=== PATIENT | female | born 1985 | race Caucasian/White ===

== ENCOUNTER 2024-06-09 19:28 | Observation (INO) ==
--- NOTE | 2024-06-09 19:35 | ED Physician Documentation ---
History of Present Illness Stated complaint Stated Complaint: CONFUSION Chief complaint Chief Complaint: Neuro Additonal information Additional information: Recent inpatient stay at [facility]. Paramedics tell me it was for alcohol. Patient says it was because she was crazy. Got out about 3 days ago. Since 1030 this morning she has been confused and slurring her speech. Perhaps took extra medications? She has no specific complaints but is a difficult historian due to her delirium. Further hx from by phone ([phone]). He thinks she took her PM meds this monring: In the morning she is post to take aripiprazole and propranolol. At bedtime to take prazosin 1 mg, divalproex 500 mg, and doxepin 100 mg. Wylie Coma Scale Assess Eye opening: Spontaneous Verbal response: Confused Motor response: Obeys Commands Total score: 14 Meds/Allgy Allergies Allergies Allergy/AdvReac Type Severity Reaction Status Date / Time No Known Drug Allergies Allergy Verified 06/09/24 19:35 [facility] Social History Social History Relationship: Do you feel safe in your home environment?: Yes Suffered physical, verbal, emotional, or financial abuse?: No Exam Constitutional She is alert and oriented to person. She is slow slurred speech and trails off. She can come up with the year correctly but not the month or the date. When I ask her what type of building this is she says "brick and mortar," but with further prompting cannot say hospital. Eyes EOMs intact bilaterally (Somewhat limited by cooperation) Midpoint sluggishly reactive pupils, symmetric Respiratory breath sounds equal bilaterally, normal respiratory effort and clear to auscultation bilaterally Cardiovascular normal heart rate noted, regular rhythm noted and no murmur Gastrointestinal abdomen soft to palpation and nontender to palpation Neurology GCS calculation - Eye opening: Spontaneous Verbal response: Confused Motor response: Obeys Commands Padmini Coma Scale total score: 14 Results Vitals Vitals: Vital Signs - 24 hr 06/09/24 19:32 06/09/24 19:35 Temperature 36.6 C Temperature Source Tympanic Pulse Rate 89 Respiratory Rate 18 Blood Pressure 134/71 H O2 Saturation 100 O2 Source Room air Pain Intensity 7 7 Oxygen O2 Source Room air EKG (time done) 1944: EKG releavant findings:: EKG personally interpreted by author of this note. Relevant findings are: Rate: Rate (enter#) (73) Rhythm: NSR and LAE [place]: Normal Intervals: Normal [place] QRS: QRS normal Ischemia: Normal ST segments Labs Labs: Laboratory Tests 06/09/24 06/09/24 06/09/24 19:41 19:41 19:57 WBC 4.9 RBC 3.98 L Hgb 7.9 L Hct 28.6 L MCV 71.9 L MCH 19.8 L MCHC 27.6 L RDW 17.6 H Plt Count 343 MPV 9.0 Neut # (Auto) 2.3 Lymph # (Auto) 1.5 [place] # (Auto) 0.5 Eos # (Auto) 0.6 Baso # (Auto) 0.0 Absolute Nucleated RBC 0.00 Nucleated RBC % 0.0 Manual Slide Review Indicated Platelet Estimate NORMAL (130-450,000) Platelet Morphology NORMAL APPEARANCE RBC Morph Micro Appear 2+ ANISOCYTOSIS 2+ HYPOCHROMASIA Sodium 136 Potassium 4.2 Chloride 103 Carbon Dioxide 27 Anion Gap 6.0 BUN 18 Creatinine 0.6 Estimated GFR (MDRD) 113 Glucose 88 Calcium 9.0 Magnesium 1.9 Total Bilirubin 0.3 AST 13 ALT 10 Alkaline Phosphatase 75 Total Creatine Kinase 44 Total Protein 6.6 Albumin 4.2 Globulin 2.4 Albumin/Globulin Ratio 1.8 Lipase < 10 L TSH 0.95 Urine Color YELLOW Urine Clarity HAZY Urine pH 6.5 Ur Specific [place] 1.010 Urine Protein NEGATIVE Urine Glucose (UA) NEGATIVE Urine Ketones NEGATIVE Urine Occult Blood NEGATIVE Urine Nitrite NEGATIVE Urine Bilirubin NEGATIVE Urine Urobilinogen 1 (NORMAL) Ur Leukocyte Esterase SMALL H Urine RBC 0-5 Urine WBC 4-5 Ur Squamous Epith Cells FEW Squamous Urine Bacteria Few Ur Microscopic Review INDICATED Urine Culture Comments INDICATED Urine HCG, Qual NEGATIVE Last Dose Date Not Reportable Last Dose Time Not Reportable Salicylates < 1.5 Urine Opiates Screen NEGATIVE Ur Buprenorphine Scrn NEGATIVE Ur Oxycodone Screen NEGATIVE Urine Methadone Screen NEGATIVE Acetaminophen 0.1 Ur Barbiturates Screen NEGATIVE Valproic Acid 30.9 Ur Tricyclics Screen POSITIVE H Ur Phencyclidine Scrn NEGATIVE Ur Amphetamine Screen NEGATIVE U Methamphetamines Scrn NEGATIVE U Benzodiazepines Scrn NEGATIVE Urine Cocaine Screen NEGATIVE U Cannabinoids Screen NEGATIVE Ur Drug Screen Comment CUTOFF CONC BELOW: Ethyl Alcohol < 10.0 PD Medical Decision Making ED course ED course: She presents with a delirium likely related to inadvertent drug overdose. My suspicion is the bulk of her symptomatology would be due to the very large dose of doxepin that she is supposed to take at night. I discussed the case by phone with her who knows the anemia is chronic and the patient seems to recognize this as well. He does not feel like she has any underlying mental health issues and was frustrated that she was sent home on so many psych medications. The main reason she went to the psychiatric hospital was for alcohol detoxification. She is persistently delirious here so call to the hospitalist for admission at 8:32 PM. Med list from [facility] dated 06/07/24 Abilify 10 mg once a day Hydroxyzine 50 mg every 4 hours Propranolol 10 mg 3 times a day Prazosin 1 mg at bedtime Divalproex extended release 500 mg at bedtime Doxepin 100 mg at bedtime Spoke with telehealth hospitalist Dr. Santos at approximately 9 PM who refuses to admit based on thinking she will clear up after a couple of hours. I did stress with him it's already been 11 hours. Reviewed 1/2 life of doxepin at 15 hours. He felt poison control input was necessary. Spoke with poison control (Karen), agrees likely d/t doxepin side effect. Supportive care only with decrease of meds. Recommends daily depakote level. EKG q6hs. Keep Mag >4 and Mag >2. I did order magnesium sulfate IV For the magnesium level of 1.9 per the above instruction. Spoke with Dr. Santos again at 9:15 PM who will admit. Discharge Plan Discharge Patient Disposition: ED Place in Observation Condition: Stable Clinical Impression: Altered mental status Print Language: Setswana Stand Alone Forms: PCP List
[2024-06-09 19:45] LABS: BASOPHILS % (AUTO) 0.6 %; EOSINOPHILS # (AUTO) 0.6 10^3/uL (0.0-0.7); EOSINOPHILS % (AUTO) 11.8 %; HCT - HEMATOCRIT 28.6 % (37.0-47.0); HGB - HEMOGLOBIN 7.9 g/dL (12.0-16.0); LYMPHOCYTES # (AUTO) 1.5 10^3/uL (1.5-3.5); LYMPHOCYTES % (AUTO) 29.6 %; MEAN CORPUSCULAR HEMOGLOBIN 19.8 pg (27.0-31.0); MEAN CORPUSCULAR HGB CONC 27.6 g/dL (32.0-36.0); MEAN CORPUSCULAR VOLUME 71.9 fL (81.0-99.0); MONOCYTES # (AUTO) 0.5 10^3/uL (0.0-1.0); NEUTROPHILS # (AUTO) 2.3 10^3/uL (1.5-6.6); NEUTROPHILS % (AUTO) 47.8 %; PLT - PLATELET COUNT 343 10^3/uL (130-450); RED BLOOD COUNT 3.98 10^6/uL (4.20-5.40); RED CELL DISTRIBUTION WIDTH 17.6 % (12.0-15.0); WHITE BLOOD COUNT 4.9 x10^3/uL (4.8-10.8)
[2024-06-09 19:51] LABS: SLIDE REVIEW? Indicated
[2024-06-09 20:04] LABS: BILIRUBIN,URINE NEGATIVE (NEGATIVE); GLUCOSE, URINE (UA) NEGATIVE (NEGATIVE); KETONES,URINE (UA) NEGATIVE (NEGATIVE); LEUKOCYTE ESTERASE, URINE SMALL (NEGATIVE); NITRITE,URINE NEGATIVE (NEGATIVE); OCCULT BLOOD,URINE NEGATIVE (NEGATIVE); PH,URINE 6.5 PH (5.0-7.5); PROTEIN,URINE NEGATIVE (NEGATIVE); UROBILINOGEN,URINE 1 (NORMAL) E.U./dL (NORMAL)
[2024-06-09 20:05] LABS: ACETAMINOPHEN 0.1 ug/mL; ALBUMIN 4.2 g/dL (3.2-5.5); ALBUMIN/GLOBULIN RATIO 1.8 (1.0-2.2); ALKALINE PHOSPHATASE 75 IU/L (42-121); ALT ALANINE AMINOTRANSFERASE 10 IU/L (10-60); AST ASPARTATE AMINOTRANSFERASE 13 IU/L (10-42); BILIRUBIN,TOTAL 0.3 mg/dL (0.2-1.0); BUN - BLOOD UREA NITROGEN 18 mg/dL (6-20); CARBON DIOXIDE - CO2 27 mmol/L (21-32); CHLORIDE 103 mmol/L (101-111); CK- CREATINE KINASE 44 IU/L (30-223); CREATININE 0.6 mg/dL (0.6-1.3); ETOH - ETHANOL < 10.0 mg/dL; GFR - MDRD 113 (>89); GLUCOSE 88 mg/dL (74-104); MAGNESIUM 1.9 mg/dL (1.7-2.3); POTASSIUM 4.2 mmol/L (3.5-4.5); SODIUM 136 mmol/L (135-145); TOTAL PROTEIN 6.6 g/dL (6.4-8.9); VALPROIC ACID (DEPAKOTE) 30.9 ug/mL
[2024-06-09 20:07] LABS: CLARITY,URINE HAZY (CLEAR); HCG UR QUAL NEGATIVE
[2024-06-09 20:13] LABS: THYROID STIMULATING HORMONE 0.95 uIU/mL (0.34-5.60)
[2024-06-09 20:15] LABS: LIPASE < 10 U/L (11-82); SALICYLATE < 1.5 mg/dL
[2024-06-09 20:16] LABS: AMPHETAMINE SCREEN,URINE NEGATIVE (NEGATIVE); COCAINE SCREEN URINE NEGATIVE (NEGATIVE); METHAMPHETAMINES SCREEN, URINE NEGATIVE (NEGATIVE); OPIATE SCREEN, URINE NEGATIVE (NEGATIVE); THC CANNABINOID SCREEN, URINE NEGATIVE (NEGATIVE)
[2024-06-09 20:17] LABS: BARBITURATE SCREEN,UR NEGATIVE (NEGATIVE); BENZODIAZEPINES SCREEN, URINE NEGATIVE (NEGATIVE); BUPRENORPHINE SCREEN, URINE NEGATIVE (NEGATIVE); METHADONE SCREEN, URINE NEGATIVE (NEGATIVE); OXYCODONE SCREEN, URINE NEGATIVE (NEGATIVE); TRICYCLIC ANTIDEPRESSANT,URINE POSITIVE (NEGATIVE)
[2024-06-09 20:19] LABS: BACTERIA,URINE Few /HPF (None Seen); RBC,URINE 0-5 /HPF (0-5); SQUAMOUS EPITHELIAL CELL,UR FEW Squamous (<= Few)
[2024-06-09 20:24] LABS: PLATELET ESTIMATE, MANUAL NORMAL (130-450,000) (NORMAL); PLATELET MORPHOLOGY NORMAL APPEARANCE (NORMAL)
[2024-06-09] MEDS ORDERED: MAGNESIUM SULFATE 2 GRAM 2 GM/50 ML BAG IV ONE (21:19)
[2024-06-09] MEDS: MAGNESIUM SULFATE 2 GRAM 2 GM/50 ML BAG IV ONE (21:20)
[2024-06-09] MEDS ORDERED: SODIUM CHLORIDE FLUSH 0.9% 10 ML SYRINGE IVP PRN (21:22)
[2024-06-09] MEDS ORDERED: ACETAMINOPHEN 325 MG TABLET PO PRN (21:22)
[2024-06-09] MEDS ORDERED: ONDANSETRON 4 MG/2 ML VIAL IVP PRN (21:22)
--- NOTE | 2024-06-09 21:47 | HISTORY & PHYSICAL EXAMINATION ---
Chief Complaint Chief Complaint Chief Complaint: Altered mental status History of Present Illness Admitted From Admitted From:: Rehab Facility History Obtained From Records Reviewed: Yes History obtained from: Yes Exam Limitations: telemedicine History of Present Illness HPI Comment/Other: 38 yr young woman presents with altered mental status," Recent inpatient stay at [facility]. Paramedics tell ER MD it was for alcohol. Patient says it was because she was crazy. Got out about 3 days ago. Since 1030 this morning she has been confused and slurring her speech. Perhaps took extra medications? She has no specific complaints but is a difficult historian due to her delirium. Further hx from by phone ([phone]). He thinks she took her PM meds this monring: In the morning she is post to take aripiprazole and propranolol. At bedtime to take prazosin 1 mg, divalproex 500 mg, and doxepin 100 mg." I was requested by Dr Stanley to admit patient for observation for Doxepin overdose, I requested him to talk with poison control and also recommended imaging test, he felt patient does not have any signs or symptoms of CVA, he spoke with poison control who recommended keeping electrolytes monitored, dialy depakote levels and EKG Q 6 hr. Patient seen and examined via telemedicine, was able to appropriately communicated, i informed her that I am based out of [place], she gave me a verbal consent to continue the encoutner. 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, no pain, but is frustrated not knowing what is wrong with her, is able to move all 4 extremitites, appropriate eye contct, in no acute pain or distress Review of Systems 14 system review done and as per HPI Allergic/Immunologic Reports: Seasonal allergies PFSH Social History Social History Smoking Status: Current every day smoker Relationship: Do you feel safe in your home environment?: Yes Suffered physical, verbal, emotional, or financial abuse?: No POLST Patient has POLST: No POLST Status: Full Code Meds/Allgy Allergies Allergies Allergy/AdvReac Type Severity Reaction Status Date / Time No Known Drug Allergies Allergy Verified 06/09/24 19:35 Prior Level of Functionality: Independent with ADL Exam Constitutional normal general appearance and no apparent distress HENMT normocephalic, hearing grossly normal bilaterally and nasal mucous membranes normal Eyes PERRL and conjunctivae normal Neck/C-Spine visual inspection normal and trachea midline Chest inspection of chest normal Respiratory breath sounds equal bilaterally and normal respiratory effort Cardiovascular normal heart rate noted and regular rhythm noted Gastrointestinal abdomen normal to inspection Genitourinary no CVA tenderness Back/Pelvis no thoracic spine tenderness and no lumbar spine tenderness Extremities normal to inspection and full ROM Neurology no movement abnormality noted, no focal motor deficit noted and no sensory deficits noted Psychiatry Thought process is slow Sepsis Event Note (H) Evaluation Current Stage of Sepsis: Ruled out Conclusion/Plan Problem List (1) Altered mental status: Plan: 38 yr young patient admitted with likely 1. Drug overdose 2.Hx of tobacco use disorder 3. Hx of ETOH use 4. Likely Doxepin overdose 5. Anemia - Chronic as per 's discussion with ER MD Plan Admit to observation Poison control has been notified by ER MD and recommend EKG q 6 hrs Keep electrolytes optimized monitor Depakote level of daily basis no other intervention at this time We discussed the need for any other interventions to which posion control and ER MD felt not needed a this time Patient has been informed that she will be seen by my colleague in am Continue DVT Prophylaxis Full code Lab Results Lab results reviewed: Yes 06/09/24 19:41 06/09/24 19:41
[2024-06-09] MEDS: HYDROcod/ACETAM 5/325 MG TABLET PO PRN (22:19)
[2024-06-10] MEDS: SODIUM CHLORIDE FLUSH 0.9% 10 ML SYRINGE IVP SCH (00:14)
[2024-06-10 05:32] LABS: BASOPHILS % (AUTO) 0.5 %; EOSINOPHILS # (AUTO) 0.4 10^3/uL (0.0-0.7); EOSINOPHILS % (AUTO) 10.9 %; HCT - HEMATOCRIT 27.4 % (37.0-47.0); HGB - HEMOGLOBIN 7.9 g/dL (12.0-16.0); LYMPHOCYTES # (AUTO) 1.3 10^3/uL (1.5-3.5); LYMPHOCYTES % (AUTO) 33.5 %; MEAN CORPUSCULAR HEMOGLOBIN 20.3 pg (27.0-31.0); MEAN CORPUSCULAR HGB CONC 28.8 g/dL (32.0-36.0); MEAN CORPUSCULAR VOLUME 70.4 fL (81.0-99.0); MEAN PLATELET VOLUME 9.1 fL (7.9-10.8); MONOCYTES # (AUTO) 0.4 10^3/uL (0.0-1.0); MONOCYTES % (AUTO) 11.2 %; NEUTROPHILS # (AUTO) 1.7 10^3/uL (1.5-6.6); NEUTROPHILS % (AUTO) 43.6 %; PLT - PLATELET COUNT 321 10^3/uL (130-450); RED BLOOD COUNT 3.89 10^6/uL (4.20-5.40); RED CELL DISTRIBUTION WIDTH 17.8 % (12.0-15.0); WHITE BLOOD COUNT 3.9 x10^3/uL (4.8-10.8)
[2024-06-10 05:36] LABS: SLIDE REVIEW? Indicated
[2024-06-10 05:49] LABS: ALBUMIN/GLOBULIN RATIO 1.7 (1.0-2.2); BILIRUBIN,TOTAL 0.3 mg/dL (0.2-1.0); CALCIUM 8.7 mg/dL (8.5-10.3); CREATININE 0.7 mg/dL (0.6-1.3); MAGNESIUM 2.1 mg/dL (1.7-2.3); PHOSPHORUS 5.2 mg/dL (2.5-5.0); POTASSIUM 4.1 mmol/L (3.5-4.5); TOTAL PROTEIN 6.3 g/dL (6.4-8.9)
[2024-06-10 06:02] LABS: PLATELET ESTIMATE, MANUAL NORMAL (130-450,000) (NORMAL); PLATELET MORPHOLOGY NORMAL APPEARANCE (NORMAL); RBC MORPHOLOGY (MULTIPLE) 2+ HYPOCHROMASIA (NORMAL); WBC MORPHOLOGY (MULTIPLE) NORMAL APPEARANCE (NORMAL)
[2024-06-10] MEDS: NICOTINE 7 MG PATCH TOP SCH (09:45)
[2024-06-10] MEDS: ARIPiprazole 5 MG TABLET PO STA (09:46)
[2024-06-10] MEDS ORDERED: ARIPiprazole 5 MG TABLET PO SCH (10:00)
--- NOTE | 2024-06-10 11:17 | PROVIDER PROGRESS NOTE ---
Subjective Subjective Subjective: Patient appears extremely agitated, anxious, and jittery. She does not think she needed to be admitted in the first place, and believes that it was a misunderstanding. She thinks that she was taking her medications as prescribed. She states that she has chronic pain that she takes Percocet for, and is just having that pain in her hips. She does not have any chest pain, any palpitations, does not feel like her heart is racing. She is very eager to go home. She states that her doxepin was prescribed 4 times a day, is very adamant about this. Tracy, the pharmacist, took the bottle to her bedside, and she was still not convinced. Her psych history was discussedshe thinks states that she has anxiety and depression. She does not recall any history of IV drug use or alcohol misuse. Her , Luke Cordova was spoken with this morning as well. His phone number is [phone]. He stated that he she was at [facility] in [place], [place]. She was discharged, and did well on Monday. However yesterday, she started having slurred speech, she was not able to talk in full sentences. She was extremely fatigued and tired. [facility] was attempted to be called, I did leave a message, but have not gotten a call back yet. Upon further review with the pharmacist, she also has benztropine, as well as Seroquel listed in her med list, which she may have been taking. Current Medications Current Medications Current Medications: Current Medications Generic Name Dose Route Start Last Admin Trade Name Karolyn PRN Reason Stop Dose Admin Acetaminophen 650 mg 06/09/24 21:22 Acetaminophen 325 Mg Tablet PO Q4HR PRN Pain 1 to 4, or Fever Hydrocodone Bitart/Acetaminophen 1 tab 06/09/24 21:22 06/10/24 05:52 Hydrocod/Acetam 5/325 Mg Tablet PO 1 tab Q4HR PRN Administration Pain 5 to 7 Nicotine 1 patch 06/10/24 09:00 06/10/24 09:45 Nicotine 7 Mg Patch TOP 1 patch DAILY YOAN Administration Ondansetron HCl 4 mg 06/09/24 21:22 Ondansetron 4 Mg/2 Ml Vial IVP Q6HR PRN Nausea / Vomiting Sodium Chloride 10 ml 06/09/24 21:22 Sodium Chloride Flush 0.9% 10 Ml Syringe IVP PRN PRN NEEDED PER PROVIDER ORDERS Sodium Chloride 10 ml 06/10/24 01:00 06/10/24 09:46 Sodium Chloride Flush 0.9% 10 Ml Syringe IVP 10 ml 0100,[id number],1700 [facility] Administration Objective Vital Signs/Intake & Output Reviewed Vital Signs: Yes Vital Signs: Vital Signs x48h Temp Pulse Pulse Resp BP Pulse Ox 06/10/24 09:00 97.9 F 106 H 18 92/56 L 92 06/10/24 05:00 98.1 F 95 H 18 99/55 L 97 Intake & Output: Intake & Output 06/08/24 06/09/24 06/10/24 06/11/24 05:59 05:59 05:59 05:59 Intake Total 850 / 850 240 / 240 Balance 850 / 850 240 / 240 Weight (kg) 81.5 kg Objective General Appearance: positive Moderate distress (jittery, would like to leave) and Anxious Eyes Bilateral: positive Normal inspection, PERRL and EOMI ENT: positive ENT inspection nml, Pharynx nml and No signs of dehydration Neck: positive Nml inspection, Thyroid nml and No JVD Respiratory: positive Chest non-tender, No respiratory distress and Breath sounds nml Cardiovascular: positive No murmur, No gallop and Tachycardia Abdomen: positive Non-tender and No organomegaly; negative Guarding, Rebound, Splenomegaly or Mass Back: positive Nml inspection; negative CVA tenderness (R) or CVA tenderness (L) Skin: positive Color nml, No rash and Dry; negative Warm Extremities: positive Non-tender, Full ROM, Nml appearance and No pedal edema Neurologic/Psychiatric: positive Oriented x3; negative Mood/affect nml (Tangential speech, rushed speech, rapid speed) Lab Results 06/10/24 05:24 06/10/24 05:24 Other Labs: Lab Results x24hrs 06/10/24 06/09/24 06/09/24 Range/Units 05:24 19:57 19:41 WBC 3.9 L (4.8-10.8) x10^3/uL RBC 3.89 L (4.20-5.40) 10^6/uL Hgb 7.9 L (12.0-16.0) g/dL Hct 27.4 L (37.0-47.0) % MCV 70.4 L (81.0-99.0) fL MCH 20.3 L (27.0-31.0) pg MCHC 28.8 L (32.0-36.0) g/dL RDW 17.8 H (12.0-15.0) % Plt Count 321 (130-450) 10^3/uL MPV 9.1 (7.9-10.8) fL Neut # (Auto) 1.7 (1.5-6.6) 10^3/uL Lymph # (Auto) 1.3 L (1.5-3.5) 10^3/uL Powell # (Auto) 0.4 (0.0-1.0) 10^3/uL Eos # (Auto) 0.4 (0.0-0.7) 10^3/uL Baso # (Auto) 0.0 (0.0-0.1) 10^3/uL Absolute Nucleated RBC 0.00 x10^3/uL Nucleated RBC % 0.0 /100WBC Manual Slide Review Indicated WBC Morphology NORMAL APPEARANCE (NORMAL) Platelet Estimate NORMAL (130-450,000) (NORMAL) Platelet Morphology NORMAL APPEARANCE (NORMAL) RBC Morph Micro Appear 2+ HYPOCHROMASIA 2+ HYPOCHROMASIA (NORMAL) Sodium 139 136 (135-145) mmol/L Potassium 4.1 4.2 (3.5-4.5) mmol/L Chloride 107 103 (101-111) mmol/L Carbon Dioxide 25 27 (21-32) mmol/L Anion Gap 7.0 6.0 (6-13) BUN 18 18 (6-20) mg/dL Creatinine 0.7 0.6 (0.6-1.3) mg/dL Estimated GFR (MDRD) 95 113 (>89) Glucose 93 88 (74-104) mg/dL Calcium 8.7 9.0 (8.5-10.3) mg/dL Phosphorus 5.2 H (2.5-5.0) mg/dL Magnesium 2.1 1.9 (1.7-2.3) mg/dL Total Bilirubin 0.3 0.3 (0.2-1.0) mg/dL AST 13 13 (10-42) IU/L ALT 9 L 10 (10-60) IU/L Alkaline Phosphatase 73 75 (42-121) IU/L Total Creatine Kinase 44 (30-223) IU/L Total Protein 6.3 L 6.6 (6.4-8.9) g/dL Albumin 4.0 4.2 (3.2-5.5) g/dL Globulin 2.3 2.4 (2.1-4.2) g/dL Albumin/Globulin Ratio 1.7 1.8 (1.0-2.2) Lipase < 10 L (11-82) U/L TSH 0.95 (0.34-5.60) uIU/mL Urine Color YELLOW Urine Clarity HAZY (CLEAR) Urine pH 6.5 (5.0-7.5) PH Ur Specific [place] 1.010 (1.002-1.030) Urine Protein NEGATIVE (NEGATIVE) mg/dL Urine Glucose (UA) NEGATIVE (NEGATIVE) mg/dL Urine Ketones NEGATIVE (NEGATIVE) mg/dL Urine Occult Blood NEGATIVE (NEGATIVE) Urine Nitrite NEGATIVE (NEGATIVE) Urine Bilirubin NEGATIVE (NEGATIVE) Urine Urobilinogen 1 (NORMAL) (NORMAL) E.U./dL Ur Leukocyte Esterase SMALL H (NEGATIVE) Urine RBC 0-5 (0-5) /HPF Urine WBC 4-5 (0-5) /HPF Ur Squamous Epith Cells FEW Squamous (<= Few) Urine Bacteria Few (None Seen) /HPF Ur Microscopic Review INDICATED Urine Culture Comments INDICATED Urine HCG, Qual NEGATIVE Last Dose Date Not Reportable Last Dose Time Not Reportable Salicylates < 1.5 mg/dL Urine Opiates Screen NEGATIVE (NEGATIVE) Ur Buprenorphine Scrn NEGATIVE (NEGATIVE) Ur Oxycodone Screen NEGATIVE (NEGATIVE) Urine Methadone Screen NEGATIVE (NEGATIVE) Acetaminophen 0.1 ug/mL Ur Barbiturates Screen NEGATIVE (NEGATIVE) Valproic Acid 30.9 ug/mL Ur Tricyclics Screen POSITIVE H (NEGATIVE) Ur Phencyclidine Scrn NEGATIVE (NEGATIVE) Ur Amphetamine Screen NEGATIVE (NEGATIVE) U Methamphetamines Scrn NEGATIVE (NEGATIVE) U Benzodiazepines Scrn NEGATIVE (NEGATIVE) Urine Cocaine Screen NEGATIVE (NEGATIVE) U Cannabinoids Screen NEGATIVE (NEGATIVE) Ur Drug Screen Comment CUTOFF CONC BELOW: Ethyl Alcohol < 10.0 mg/dL 06/09/24 Range/Units 19:41 WBC 4.9 (4.8-10.8) x10^3/uL RBC 3.98 L (4.20-5.40) 10^6/uL Hgb 7.9 L (12.0-16.0) g/dL Hct 28.6 L (37.0-47.0) % MCV 71.9 L (81.0-99.0) fL MCH 19.8 L (27.0-31.0) pg MCHC 27.6 L (32.0-36.0) g/dL RDW 17.6 H (12.0-15.0) % Plt Count 343 (130-450) 10^3/uL MPV 9.0 (7.9-10.8) fL Neut # (Auto) 2.3 (1.5-6.6) 10^3/uL Lymph # (Auto) 1.5 (1.5-3.5) 10^3/uL [place] # (Auto) 0.5 (0.0-1.0) 10^3/uL Eos # (Auto) 0.6 (0.0-0.7) 10^3/uL Baso # (Auto) 0.0 (0.0-0.1) 10^3/uL Absolute Nucleated RBC 0.00 x10^3/uL Nucleated RBC % 0.0 /100WBC Manual Slide Review Indicated WBC Morphology (NORMAL) Platelet Estimate NORMAL (130-450,000) (NORMAL) Platelet Morphology NORMAL APPEARANCE (NORMAL) RBC Morph Micro Appear 2+ ANISOCYTOSIS (NORMAL) Sodium (135-145) mmol/L Potassium (3.5-4.5) mmol/L Chloride (101-111) mmol/L Carbon Dioxide (21-32) mmol/L Anion Gap (6-13) BUN (6-20) mg/dL Creatinine (0.6-1.3) mg/dL Estimated GFR (MDRD) (>89) Glucose (74-104) mg/dL Calcium (8.5-10.3) mg/dL Phosphorus (2.5-5.0) mg/dL Magnesium (1.7-2.3) mg/dL Total Bilirubin (0.2-1.0) mg/dL AST (10-42) IU/L ALT (10-60) IU/L Alkaline Phosphatase (42-121) IU/L Total Creatine Kinase (30-223) IU/L Total Protein (6.4-8.9) g/dL Albumin (3.2-5.5) g/dL Globulin (2.1-4.2) g/dL Albumin/Globulin Ratio (1.0-2.2) Lipase (11-82) U/L TSH (0.34-5.60) uIU/mL Urine Color Urine Clarity (CLEAR) Urine pH (5.0-7.5) PH Ur Specific [place] (1.002-1.030) Urine Protein (NEGATIVE) mg/dL Urine Glucose (UA) (NEGATIVE) mg/dL Urine Ketones (NEGATIVE) mg/dL Urine Occult Blood (NEGATIVE) Urine Nitrite (NEGATIVE) Urine Bilirubin (NEGATIVE) Urine Urobilinogen (NORMAL) E.U./dL Ur Leukocyte Esterase (NEGATIVE) Urine RBC (0-5) /HPF Urine WBC (0-5) /HPF Ur Squamous Epith Cells (<= Few) Urine Bacteria (None Seen) /HPF Ur Microscopic Review Urine Culture Comments Urine HCG, Qual Last Dose Date Last Dose Time Salicylates mg/dL Urine Opiates Screen (NEGATIVE) Ur Buprenorphine Scrn (NEGATIVE) Ur Oxycodone Screen (NEGATIVE) Urine Methadone Screen (NEGATIVE) Acetaminophen ug/mL Ur Barbiturates Screen (NEGATIVE) Valproic Acid ug/mL Ur Tricyclics Screen (NEGATIVE) Ur Phencyclidine Scrn (NEGATIVE) Ur Amphetamine Screen (NEGATIVE) U Methamphetamines Scrn (NEGATIVE) U Benzodiazepines Scrn (NEGATIVE) Urine Cocaine Screen (NEGATIVE) U Cannabinoids Screen (NEGATIVE) Ur Drug Screen Comment Ethyl Alcohol mg/dL Sepsis Event Note (H) Evaluation Current Stage of Sepsis: Ruled out Assessment/Plan Problem List (1) Altered mental status: Impression: Patient is able to talk in complete sentences. She is alert and oriented x 3. She does have pressured speech, is very anxious, jittery, and her speech is tangential in nature. She does not appear acutely manic at this time. She has no active homicidal or suicidal ideation. She has a recent stay at [facility]; according to her , her discharge paperwork shows that she should be taking the following medications at the following dosages: Prazosin 1 mg nightly, Divaloproex 500 milligrams every night, Abilify 10 mg every morning, doxepin 100 mg at night as needed, hydroxyzine 50 mg every 4 hours as needed for anxiety, propranolol 10 mg 3 times a day as needed for anxiety. There was concern for doxepin overdose. Patient did endorse that she was taking it 4 times a day. Poison control was spoken with by the ED, and they recommended EKGs every 6 hours, as well as telemetry. She is tachycardic, but no arrhythmias have been noted. Patient's mental status does appear to be improved in terms of somnolence and altered mentation from admission, however she is still extremely anxious, jittery. Will continue Abilify and one dose of propranolol this morning. Hold other medications until after telepsych appointment. We need to confirm the dosages and the medications patient should be on. Telepsych was consulted, we appreciate their recommendations. Qualifiers: Altered mental status type: unspecified Qualified Code(s): R41.82 - Altered mental status, unspecified (2) Depression: Impression: Unclear what psychiatric disorders patient has. States she has depression and anxiety. Per , she also has an underlying substance abuse problem with alcohol. Telepsych consulted, appreciate recommendations. Poison control has signed off as of around 1 PM today. Will await their recommendations on her medications moving forward prior to discharge. Qualifiers: Depression Type: unspecified Qualified Code(s): F32.A - Depression, unspecified
--- NOTE | 2024-06-10 11:40 | PHARMACY PROGRESS NOTE ---
Best Possible Medication History Admit Date and Time: 06/09/24 [id number] Home Medications Medication Instructions Recorded Confirmed Type aripiprazole 10 mg tablet 10 mg PO DAILY 06/10/24 06/10/24 History ashwagandha extract 600 mg PO DAILY 06/10/24 06/10/24 History benztropine 1 mg tablet 1 mg PO BID PRN tremors 06/10/24 06/10/24 History divalproex 500 mg tablet,extended 500 mg PO HS 06/10/24 06/10/24 History release 24 hr doxepin 50 mg capsule 100 mg PO HS PRN insomnia 06/10/24 06/10/24 History escitalopram oxalate 10 mg tablet 10 mg PO DAILY PM 06/10/24 06/10/24 History famotidine 20 mg tablet 20 mg PO BID 06/10/24 06/10/24 History hydroxyzine pamoate 25 mg capsule 50 mg PO Q4H PRN anxiety 06/10/24 06/10/24 History omeprazole 20 mg capsule,delayed 20 mg PO DAILY PRN heartburn 06/10/24 06/10/24 History release prazosin 1 mg capsule 1 mg PO QPM 06/10/24 06/10/24 History propranolol 10 mg tablet 10 mg PO TID PRN anxiety 06/10/24 06/10/24 History quetiapine 50 mg tablet 100 mg PO BID 06/10/24 06/10/24 History Processed by: Pharmacy Medications reviewed in ED?: No Medication History completed: Yes Patient Interview: Completed Secondary Source(s): Prescription bottles, Insurance records and Previous admit records (Per prior facility admit records, patient was to be discharged on: aripiprazole, divalproex, doxepin, hydroxyzine, propranolol, and prazosin. Patient was not quite taking these medications as prescribed and was splitting doses throughout the day. ) [facility] Statement: Per prior facility admit records, patient was to be discharged on: aripiprazole, divalproex, doxepin, hydroxyzine, propranolol, and prazosin. (bottles for doxepine, hydroxyzine, and propranolol were brought in, no aripiprazole, di valproex, or prazosin present on admit. Patient was not quite taking these medications as prescribed and was splitting doses throughout the day. In addition to these medications prescribed on prior discharge, the patient had bottles of the benztropine, famotidine, and quetiapine and stated she has been taking those. She also stated that she was on the escitalopram, but potentially recently ran out of medications. As the person ultimately responsible for medication therapy, providers are able to order a medication from an existing home medication list in [facility] via the "Reconcile Routine" prior to Confirmation of that medication by sales support advisor. Such practice is discouraged except when the physician, in their clinical judgment, deems that a medical need exists for a medication without regard to previous use.
[2024-06-10 13:57] VITALS: O2SAT 99
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
[2024-06-10] MEDS: PROPRANOLOL 10 MG TABLET PO STA (14:55)
--- NOTE | 2024-06-10 15:18 | Discharge Summary ---
Discharge Summary Admit Date: 06/09/24 Discharge Date: 06/10/24 Discharging Provider: Dr. Isis Sorto Code Status: Attempt Resuscitation DIAGNOSES Admission Diagnoses: Drug overdose History of tobacco use History of alcohol use Likely doxepin overdose Anemia, chronic Discharge Diagnoses with Status of Each Condition: Altered mental statusPer , as well as psychiatrist who interviewed patient via telehealth, patient is back at her baseline. She is alert and oriented x 3. She does have some pressured speech. She denies any active homicidal or suicidal ideation. She is not actively psychotic. Likely due to medication overuse. Her medication list was trimmed in conjunction with a psychiatrist. Depression, anxiety, PTSDcontinue medications as listed below. Patient should be on Abilify 10 mg daily, Depakote 500 mg extended release, Seroquel 100 mg twice daily, prazosin 1 mg nightly, benztropine 1 mg twice daily as needed for tremors, Lexapro 10 mg daily, hydroxyzine 25 mg twice a day as needed for anxiety. This was relayed to the as well. HPI History of Present Illness: Per Dr. Santos: 38 yr young woman presents with altered mental status," Recent inpatient stay at [facility]. Paramedics tell ER MD it was for alcohol. Patient says it was because she was crazy. Got out about 3 days ago. Since 1030 this morning she has been confused and slurring her speech. Perhaps took extra medications? She has no specific complaints but is a difficult historian due to her delirium. Further hx from by phone ([phone]). He thinks she took her PM meds this monring: In the morning she is post to take aripiprazole and propranolol. At bedtime to take prazosin 1 mg, divalproex 500 mg, and doxepin 100 mg." I was requested by Dr Stanley to admit patient for observation for Doxepin overdose, I requested him to talk with poison control and also recommended imaging test, he felt patient does not have any signs or symptoms of CVA, he spoke with poison control who recommended keeping electrolytes monitored, dialy depakote levels and EKG Q 6 hr. Patient seen and examined via telemedicine, was able to appropriately communicated, i informed her that I am based out of [place], she gave me a verbal consent to continue the encoutner. 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 According to her , she was falling in and out of sleep, was fatigued, and was mumbling her words. Initial drug screen was positive for TCAs, and patient is on doxepin. She was treated as a suspected doxepin overuse. Poison control was spoken with by the ED, they recommended serial EKGs; this was completed, with no acute arrhythmias noted. Of note, patient was recently discharged from [facility]. Her discharge medication list was different than what she was taking. Psychiatrist was consulted, and they did complete a telepsych visit with her. She was spoken with after completion of this. Her medication list was changed to the following: Abilify 10 mg daily, Depakote 500 mg extended release, Seroquel 100 mg twice daily, prazosin 1 mg nightly, benztropine 1 mg twice daily as needed for tremors, Lexapro 10 mg daily, hydroxyzine 25 mg twice a day as needed for anxiety. Will send in the above to the pharmacy. Will also speak with the so he knows exactly what she should be taking, patient stated that she was okay with me calling him. Patient was advised extensively to follow-up with a psychiatrist in the outpatient setting, as well as her primary care physician. She demonstrated understanding. ALLERGIES Allergies Allergy/AdvReac Type Severity Reaction Status Date / Time No Known Drug Allergies Allergy Verified 06/09/24 19:35 MEDICATIONS Ambulatory Orders Medication Instructions Recorded Confirmed aripiprazole 10 mg tablet 10 mg PO DAILY 30 days #30 tabs 06/10/24 aripiprazole 10 mg tablet (Abilify) 10 mg PO DAILY #30 tabs 06/10/24 benztropine 1 mg tablet 1 mg PO BID PRN tremor(s) #60 tabs 06/10/24 benztropine 1 mg tablet 1 mg PO BID PRN tremors #60 tabs 06/10/24 divalproex 500 mg tablet,extended 500 mg PO HS #30 tabs 06/10/24 release 24 hr divalproex 500 mg tablet,extended 500 mg PO DAILY #30 tabs 06/10/24 release 24 hr (Depakote ER) escitalopram oxalate 10 mg tablet 10 mg PO DAILY PM #30 tabs 06/10/24 escitalopram oxalate 10 mg tablet 10 mg PO DAILY #30 tabs 06/10/24 (Lexapro) hydroxyzine HCl 25 mg tablet 25 mg PO BID PRN anxiety #60 tabs 06/10/24 hydroxyzine pamoate 25 mg capsule 50 mg (2 x 25 mg) PO BID PRN 06/10/24 anxiety #30 caps omeprazole 20 mg capsule,delayed 20 mg PO DAILY PRN heartburn 06/10/24 06/10/24 release prazosin 1 mg capsule 1 mg PO QPM #30 caps 06/10/24 prazosin 1 mg capsule 1 mg PO QPM #30 caps 06/10/24 quetiapine 100 mg tablet (Seroquel) 100 mg PO BID #60 tabs 06/10/24 quetiapine 50 mg tablet 100 mg (2 x 50 mg) PO BID #60 tabs 06/10/24 PHYSICAL EXAM AT DISCHARGE General Appearance: positive Mild distress and Anxious Eyes Bilateral: positive Normal inspection, PERRL and EOMI ENT: positive ENT inspection nml, Pharynx nml and No signs of dehydration Neck: positive Thyroid nml Respiratory: positive Chest non-tender, No respiratory distress and Breath sounds nml Cardiovascular: positive Regular rate & rhythm, No murmur and No gallop; negative Tachycardia or Bradycardia Peripheral Pulses: positive 2+ Abdomen: positive Non-tender, No organomegaly and Nml bowel sounds; negative Guarding, Hepatomegaly or Splenomegaly Skin: positive Color nml, No rash, Warm and Dry Extremities: positive Non-tender, Full ROM and No pedal edema Neurologic/Psychiatric: positive Oriented x3 and Motor nml LABS 06/10/24 05:24 06/10/24 05:24 DIAGNOSTIC IMAGING Diagnostic Imaging Results: Final report reviewed SEPSIS Current Stage of Sepsis: Ruled out QUALITY (Female Hip Fx Only) Was patient sent home on osteoporosis medication?: No FOLLOW UP Follow Up: Follow up with psychiatry and PCP in outpatient setting. TIME SPENT Time Spent in Discharge (Minutes): 30 Discharge Plan Discharge Patient Disposition: Home, Self Care Condition: Stable Prescriptions: New aripiprazole [Abilify] 10 mg tablet 10 mg PO DAILY Qty: 30 0RF divalproex [Depakote ER] 500 mg tablet extended release 24 hr 500 mg PO DAILY Qty: 30 2RF quetiapine [Seroquel] 100 mg tablet 100 mg PO BID Qty: 60 0RF prazosin 1 mg capsule 1 mg PO QPM Qty: 30 0RF benztropine 1 mg tablet 1 mg PO BID PRN (Reason: tremor(s)) Qty: 60 0RF escitalopram oxalate [Lexapro] 10 mg tablet 10 mg PO DAILY Qty: 30 0RF hydroxyzine HCl 25 mg tablet 25 mg PO BID PRN (Reason: anxiety) Qty: 60 0RF Continued omeprazole 20 mg capsule,delayed release(DR/EC) 20 mg PO DAILY PRN (Reason: heartburn) prazosin 1 mg capsule 1 mg PO QPM Qty: 30 0RF divalproex 500 mg tablet extended release 24 hr 500 mg PO HS Qty: 30 0RF benztropine 1 mg tablet 1 mg PO BID PRN (Reason: tremors) Qty: 60 0RF Patient Comments: Take 1 tablet PO every twelve hours as needed Tremors escitalopram oxalate 10 mg tablet 10 mg PO DAILY PM Qty: 30 0RF aripiprazole 10 mg tablet 10 mg PO DAILY 30 Days Qty: 30 0RF quetiapine 50 mg tablet 100 mg PO BID Qty: 60 0RF Rx Instructions: PATIENT STATES SHE WAS TAKING SPLIT UP THROUGHOUT THE DAY WITH SOME AT NOON. Changed hydroxyzine pamoate 25 mg capsule 50 mg PO BID PRN (Reason: anxiety) Qty: 30 0RF Discontinued doxepin 50 mg capsule 100 mg PO HS PRN (Reason: insomnia) Patient Comments: PATIENT HAS BEE TAKING A TOTAL OF 100MG THROUGHOUT THE DAY, HAD 25MG CAPSULES FROM RECENT STAY, WAS TAKING ONE IN MORNING, NOON, AND 2 IN THE EVENING famotidine 20 mg tablet 20 mg PO BID propranolol 10 mg tablet 10 mg PO TID PRN (Reason: anxiety) Rx Instructions: for anxiety not relieved by hydroxyzine after 30 minutes ashwagandha extract 600 mg PO DAILY Diet: Regular Interventions: Belongings Inventory Last Done: 06/09/24 22:26 Health Concerns: You came in because you were not acting quite like yourself. There was concern that you had taken too much of one of your medications doxepin accidentally. We monitored your heart rate and your heart rhythm closely for any arrhythmias. I spoke with [employer] control about this as well. They were satisfied with your length of observation, and no heart arrhythmias were noted in that time. You also spoke with a psychiatrist while you are here, and we made some changes to your medications. First of all, you were told to stop taking propranolol and doxepin. Additionally, we decreased your hydroxyzine to 25 mg twice a day as needed for anxiety instead of every 4 hours as you were taking it. The psychiatrist told you it was okay to continue Abilify 10 mg daily, Depakote 5 mg extended release at night, Seroquel 100 mg twice a day, prazosin 1 mg at night, benztropine 1 mg twice a day as needed for your tremors, Lexapro 10 mg daily. It is really important that you follow-up with a psychiatrist, as well as a primary care doctor when you are discharged from here. We are glad you are feeling better, thank you for allowing us to take care of you. Print Language: Stateless Patient Instructions: PTSD Coping Stand Alone Forms: PCP List
[2024-06-10] MEDS: DIVALPROEX ER 250 MG TABLET PO STA (17:04)
[2024-06-10] MEDS: QUEtiapine 100 MG TABLET PO STA (17:04)
[2024-06-10] MEDS: PRAZOSIN 1 MG CAPSULE PO STA (17:04)
[2024-06-10] MEDS: hydrOXYzine PAMOATE 25 MG CAPSULE PO STA (17:05)
== END 2024-06-10 17:12 | disposition home or self-care (01) ==
LOC: MS2 19:28 → ED 19:28 → MS2 22:04
PROVIDERS: ADMIT Internal Medicine; ATTEND Internal Medicine
DX: T43.011A Poisoning by tricyclic antidepressants, accidental (unintentional), initial encounter; I51.7 Cardiomegaly; F41.9 Anxiety disorder, unspecified; F17.200 Nicotine dependence, unspecified, uncomplicated; R25.1 Tremor, unspecified; F43.10 Post-traumatic stress disorder, unspecified; F32.A Depression, unspecified; D64.9 Anemia, unspecified; R41.82 Altered mental status, unspecified